=== PATIENT | male | born 1945 | race Caucasian/White ===

== ENCOUNTER 2019-01-30 09:32 | Day surgery (SDC) | payer MEDICARE, OTHER ==
[~2019-01-30 09:32] MED LIST: CEFAZOLIN 2 GM/50 ML (PMX) 50 ML IVPB
[2019-01-30] MEDS ORDERED: ACETAMINOPHEN 500 MG TAB (11:06)
[2019-01-30 11:27] LABS: ANION GAP 11 (5-13); BLOOD UREA NITROGEN 38 mg/dl (7-20); CALCIUM 9.3 mg/dl (8.4-10.2); CARBON DIOXIDE 22 mmol/L (21-31); CHLORIDE 113 mmol/L (97-110); GLUCOSE 83 mg/dl (70-220)
[2019-01-30 11:28] LABS: CREATININE 1.94 mg/dl (0.61-1.24)
[2019-01-30 11:30] LABS: SODIUM 146 mmol/L (135-144)
[2019-01-30] MEDS ORDERED: ACETAMINOPHEN 500 MG TAB PO (11:30)
[2019-01-30] MEDS ORDERED: PROPOFOL 200 MG INJ (11:42)
[2019-01-30] MEDS ORDERED: MIDAZOLAM 1 MG/ML 2 ML INJ (11:42)
[2019-01-30] MEDS ORDERED: LIDOCAINE 2% (SDV) 5 ML INJ (11:42)
[2019-01-30] MEDS ORDERED: PROPOFOL 60 ML (11:42)
[2019-01-30] MEDS ORDERED: CEFAZOLIN 1 GM INJ (11:42)
[2019-01-30] MEDS ORDERED: FENTAnyl 50 MCG/ML VIAL (11:42)
[2019-01-30] MEDS ORDERED: HYDROCODONE/APAP (5/325) TAB PO (12:30)
[2019-01-30] MEDS ORDERED: ONDANSETRON 4 MG INJ IV ×2 (12:30→13:00)
[2019-01-30] MEDS ORDERED: BUPIVACAINE 0.25% (MPF) 30 ML INJ (12:48)
[2019-01-30] MEDS: POLYMYXIN/BACITRACIN 1L IRRIG (12:48)
[2019-01-30] MEDS ORDERED: LIDOCAINE 1% (MPF) 30 ML INJ (12:48)
[2019-01-30] MEDS ORDERED: OXYCODONE/ACETAMINOPHEN (5/325) TAB PO ×2 (13:00)
[2019-01-30] MEDS ORDERED: EPHEDrine 25 MG/5 ML SYG IV (13:00)
[2019-01-30] MEDS ORDERED: HYDROmorphONE 1 MG/5 ML IV SYRINGE IV ×3 (13:00)
[2019-01-30] MEDS ORDERED: ALBUTEROL 0.083% (NEB) 2.5 MG/3 ML AMP HHN (13:00)
[2019-01-30] MEDS ORDERED: FENTAnyl 50 MCG/ML VIAL IV ×2 (13:00)
[2019-01-30] MEDS ORDERED: MEPERIDINE 25 MG INJ IV (13:00)
[2019-01-30] MEDS ORDERED: DIPHENHYDRAMINE 50 MG INJ IV (13:00)
[2019-01-30] MEDS ORDERED: morphine 2 MG INJ IV ×2 (13:00)
[2019-01-30] MEDS ORDERED: LABETALOL HCL 20MG INJ IV (13:00)
[2019-01-30] MEDS ORDERED: PHENYLephrine (100 MCG/ML) 10ML SYG (13:09)
[2019-01-30] MEDS ORDERED: EPHEDrine 25 MG/5 ML SYG (13:22)
[2019-01-30] MEDS: hydrALAzine 20 MG INJ IV (15:28)
== END 2019-01-30 17:10 | disposition home or self-care (01) ==
LOC: SDS 09:32
DX: M86.8X7 Other osteomyelitis, ankle and foot (principal); E11.9 Type 2 diabetes mellitus without complications; I25.10 Atherosclerotic heart disease of native coronary artery without angina pectoris; I73.9 Peripheral vascular disease, unspecified; E11.22 Type 2 diabetes mellitus with diabetic chronic kidney disease; I12.9 Hypertensive chronic kidney disease with stage 1 through stage 4 chronic kidney disease, or unspecified chronic kidney disease; N18.9 Chronic kidney disease, unspecified
CPT/HCPCS: 28810; 73620; 80048; 82962; 88305; 88311; 97116; 97162